=== PATIENT | female | born 1995 | race Two or more races ===

== ENCOUNTER 2020-09-04 12:12 | Emergency (ER) | payer OTHER ==
--- NOTE | 2020-09-04 13:17 | ER Document Report ---
ED Medical Screen (RME) - General Chief Complaint: Urinary Problem Stated Complaint: URINARY PROBLEMS Time Seen by Provider: 09/04/20 13:12 Mode of Arrival: Ambulatory Information source: Patient Notes: Presents complaining of right lower pelvic pain that started yesterday. Patient states she has had vaginal bleeding for the past 11 days. Patient reports decreased appetite although denies any nausea vomiting or diarrhea. Patient denies any fever. Patient states she was seen at her doctor's office and diagnosed with a UTI although told to come here for an ultrasound. I have greeted and performed a rapid initial assessment of this patient. A comprehensive ED assessment and evaluation of the patient, analysis of test results and completion of the medical decision making process will be conducted by additional ED providers. Physical Exam - Vital signs Vitals: Temp Pulse Resp BP Pulse Ox 98.1 F 76 21 H 147/92 H 100 09/04/20 12:18 09/04/20 12:18 09/04/20 12:18 09/04/20 12:18 09/04/20 12:18 - Abdominal Tenderness: Tender - right Lower pelvic tenderness Course - Vital Signs Vital signs: Temp Pulse Resp BP Pulse Ox 98.1 F 76 21 H 147/92 H 100 09/04/20 12:18 09/04/20 12:18 09/04/20 12:18 09/04/20 12:18 09/04/20 12:18
[2020-09-04 13:53] LABS: APPEARANCE,URINE CLEAR; BILIRUBIN,URINE NEGATIVE (NEGATIVE); COLOR,URINE YELLOW; GLUCOSE, URINE NEGATIVE (NEGATIVE); KETONES,URINE NEGATIVE (NEGATIVE); PROTEIN,URINE NEGATIVE (NEGATIVE); URINE SPECIFIC GRAVITY 1.013; UROBILINOGEN,URINE NEGATIVE mg/dL (<2.0)
--- NOTE | 2020-09-04 15:05 | RADIOLOGY REPORT (SQ) ---
EXAM DESCRIPTION: U/S OB TRANSVAG W/DOPPLER IMAGES COMPLETED DATE/TIME: 09/04/2020 2:41 pm REASON FOR STUDY: RLQ pain COMPARISON: None. TECHNIQUE: Transvaginal static and realtime grayscale images acquired of the pelvis. Additional bonnie cted spectral and color Doppler images recorded. All images stored on PACs. CLINICAL AGE: Uncertain. BHCG: Pending. LIMITATIONS: None. FINDINGS: UTERUS: No visualized intrauterine . RIGHT ADNEXA: Normal ovary with normal vascular flow. No adnexal free fluid. Possible ill-defined mass adjacent to the ovary, measuring just over 1 cm. Peripheral flow. LEFT ADNEXA: Normal ovary with normal vascular flow. No adnexal free fluid. No adnexal masses. FREE FLUID: None. OTHER: No other significant finding. IMPRESSION: NO VISUALIZED INTRAUTERINE . BHCG LEVEL NOT AVAILABLE FOR CORRELATION WITH US FINDINGS. POSSIBLE SMALL ILL-DEFINED MASS ADJACENT TO RIGHT OVARY. ECTOPIC CANNOT BE EXCLUDED. CORRELATE WITH BHCG LEVEL. TECHNICAL DOCUMENTATION: JOB ID: [id number] 2010 [employer]- All Rights Reserved Reading location - IP/workstation name: [email or web address]
[2020-09-04 15:40] LABS: CHLAM PCR NOT DETECTED (NOT DETECT)
[2020-09-04 16:01] LABS: ABSOLUTE EOSINOPHILS # (AUTO) 0.2 10^3/uL (0.0-0.6); ABSOLUTE LYMPHOCYTES (AUTO) 1.9 10^3/uL (0.5-4.7); ABSOLUTE MONOCYTES (AUTO) 0.3 10^3/uL (0.1-1.4); ABSOLUTE NEUT (AUTO) 2.7 10^3/uL (1.7-8.2); BASOPHILS % (AUTO) 0.8 % (0-2); EOSINOPHILS % (AUTO) 4.3 % (0-6); HEMATOCRIT 37.1 % (36.0-47.0); HEMOGLOBIN 12.5 g/dL (12.0-15.5); LYMPHOCYTES % (AUTO) 36.6 % (13-45); MEAN CORPUSCULAR HEMOGLOBIN 27.5 pg (27.0-33.4); MEAN CORPUSCULAR HGB CONC 33.6 g/dL (32.0-36.0); MEAN CORPUSCULAR VOLUME 82 fl (80-97); MONOCYTES % (AUTO) 6.5 % (3-13); PLATELET COUNT 250 10^3/uL (150-450); RED BLOOD COUNT 4.55 10^6/uL (3.72-5.28); RED CELL DISTRIBUTION WIDTH 14.1 % (11.5-14.0); SEGMENTED NEUTROPHILS % (AUTO) 51.8 % (42-78); TOTAL CELLS COUNTED % (AUTO) 100 %; WHITE BLOOD COUNT 5.2 10^3/uL (4.0-10.5)
[2020-09-04 16:25] LABS: ANION GAP 7 (5-19); BLOOD UREA NITROGEN 14 mg/dL (7-20); CALCIUM 10.1 mg/dL (8.4-10.2); CARBON DIOXIDE 28 mmol/L (22-30); CHLORIDE 102 mmol/L (98-107); GLUCOSE 77 mg/dL (75-110); POTASSIUM 4.6 mmol/L (3.6-5.0)
[2020-09-04] MEDS ORDERED: NORMAL SALINE 1000 ML 1,000 ML IV ONE (16:59)
--- NOTE | 2020-09-04 17:42 | ER Document Report ---
ED General - General Chief Complaint: Vaginal Bleeding Stated Complaint: URINARY PROBLEMS Time Seen by Provider: 09/04/20 13:12 Mode of Arrival: Ambulatory - HPI Notes: Patient is a 25-year-old female presents to the emergency department for evaluation of 11 days of vaginal bleeding as well as right pelvic pain. Her last menstrual period was in July, she states it was normal. She started having vaginal bleeding, which she states is similar to menstruation, but she is continued to have significant pain that is worse than normal menstruation. Her pain was generalized but now it is localized to the right side. It is sharp and stabbing. Nothing really seems to make it better or worse. She said no fever chills. No vaginal discharge. She is sexually active. She has been twice prior to this, she did have an elective AB and a miscarriage in the past. - Related Data Allergies/Adverse Reactions: bee venom protein (honey bee) Allergy (Verified 09/04/20 16:20) nickel Allergy (Verified 09/04/20 16:20) Past Medical History - General Information source: Patient - Social History Smoking Status: Never Smoker Family History: Other - GERD GI Medical History: Reports: Hx Gastroesophageal Reflux Disease Psychiatric Medical History: Reports: Hx Bipolar Disorder Past Surgical History: Reports: Hx Oral Surgery - wisdom Review of Systems - Review of Systems Constitutional: No symptoms reported EENT: No symptoms reported Cardiovascular: No symptoms reported Respiratory: No symptoms reported Gastrointestinal: No symptoms reported Genitourinary: No symptoms reported Female Genitourinary: See HPI Musculoskeletal: No symptoms reported Skin: No symptoms reported Neurological/Psychological: No symptoms reported Physical Exam - Vital signs Vitals: Temp Pulse Resp BP Pulse Ox 98.1 F 76 21 H 147/92 H 100 09/04/20 12:18 09/04/20 12:18 09/04/20 12:18 09/04/20 12:18 09/04/20 12:18 - Notes Notes: Vital signs reviewed, please refer to chart. Head is normocephalic, atraumatic. Pupils equal round, reactive to light. Neck is supple without meningismus. Heart is regular rate and rhythm. Lungs are clear to auscultation bilaterally. Abdomen is soft, minimally tender in the right pelvis without rebound or gu arding, normoactive bowel sounds throughout. Extremities without cyanosis, clubbing. Posterior calves are nontender. Peripheral pulses are equal. Skin is warm and dry. Patient is awake, alert, neurological exam is nonfocal. Course - Re-evaluation Re-evalutation: 09/04/20 17:41 Patient presents to the emergency department for evaluation. She laboratory vesication is is initially ordered through triage. She was found to be p regnant. OB ultrasound was performed, and there is some concern for an ectopic . Quantitative beta and Rh status ordered. IV fluids ordered. Patient is stable, we will continue to monitor. 09/04/20 18:08 I discussed this case with Dr. Radha Weinberg. She states that it sounds like it may be a likely ectopic, but also could be a possible corpus luteum cyst. It does turn on fact that if this is a viable it is desired. We will repeat a quant on Monday, with results to Dr. Mckeon, who will be the CP BLEACHER OPERATOR on- call. The patient is to call Monday morning for an CP BLEACHER OPERATOR appointment to be assessed this week with a repeat ultrasound. Still awaiting Rh screening. If negative she will receive RhoGam. All of this information was communicated to the patient. Repeat abdominal exam reveals again tenderness but no rebound or guarding. 09/04/20 18:21 Patient is Rh+, RhoGam not indicated. - Vital Signs Vital signs: Temp Pulse Resp BP Pulse Ox 98.1 F 76 21 H 147/92 H 100 09/04/20 12:18 09/04/20 12:18 09/04/20 12:18 09/04/20 12:18 09/04/20 12:18 - Laboratory Results Result Diagrams: 09/04/20 15:25 09/04/20 15:25 Laboratory Results Interpreted: 09/04/20 09/04/20 09/04/20 13:33 15:25 15:25 RDW 14.1 H Serum HCG, Qual POSITIVE H Beta HCG, Quant Urine Blood LARGE H 09/04/20 15:25 RDW Serum HCG, Qual Beta HCG, Quant 134.84 H Urine Blood Critical Laboratory Results Reviewed: No Critical Results - Radiology Results Radiology Results Interpreted: 09/04/20 17:42 Transvaginal US 09/04/20 13:15 IMPRESSION: NO VISUALIZED INTRAUTERINE . BHCG LEVEL NOT AVAILABLE FOR CORRELATION WITH US FINDINGS. POSSIBLE SMALL ILL-DEFINED MASS ADJACENT TO RIGHT OVARY. ECTOPIC CANNOT BE EXCLUDED. CORRELATE WITH BHCG LEVEL. Critical Radiology Results Reviewed: No Critical Results Discharge - Discharge Clinical Impression: Abnormal vaginal bleeding, Possible ectopic Clinical Impression: (Ruled Out): Abnormal vaginal bleeding in postmenopausal patient Condition: Stable Disposition: HOME, SELF-CARE Instructions: Bleeding During Early ([facility]), Vaginal Bleeding ([facility]) Additional Instructions: Your findings today are concerning for a possible early ectopic . Further testing must be performed. You need to have a quantitative beta-hCG p erformed on Monday. Your beta today is 134. It is important that this lab be done on Monday, you can check in with outpatient registration. Call Monday morning to women's health to set up an appointment for repeat ultrasound this week. If you develop increasing pain, dizziness, vaginal bleeding that is heavier than 1 pad an hour for 4 hours, or any other new or concerning symptoms, please return immediately to the emergency department for evaluation. Forms: Follow-Up Laboratory Testing
[2020-09-04 18:39] VITALS: BP 127/79
== END 2020-09-04 18:38 | disposition home or self-care (01) ==
LOC: ER 12:12
DX: N93.8 Other specified abnormal uterine and vaginal bleeding (principal); R10.2 Pelvic and perineal pain
CPT/HCPCS: 99285; 96360; 86900; 86901; 36415; 84702; 84703; 85025; 80048; 81001; 87491; 87591; 76817; 93976; J7030

== ENCOUNTER → 2020-09-06 | Outpatient (CLI) | payer OTHER | LOC: LAB 11:44 | PROVIDERS: ATTEND Emergency Medicine | DX: O46.90 Antepartum hemorrhage, unspecified, unspecified trimester (principal) | CPT/HCPCS: 36415; 84702 ==

== ENCOUNTER 2020-09-10 11:25 | Day surgery (SDC) | payer OTHER ==
[~2020-09-10 11:25] MED LIST: ROCURONIUM BROMIDE INJ 50 MG/5 ML VIAL IV ONE
[2020-09-10 12:05] LABS: APPEARANCE,URINE CLEAR; BILIRUBIN,URINE NEGATIVE (NEGATIVE); COLOR,URINE STRAW; GLUCOSE, URINE NEGATIVE (NEGATIVE); KETONES,URINE NEGATIVE (NEGATIVE); LEUKOCYTE ESTERASE,URINE NEGATIVE (NEGATIVE); NITRITE,URINE NEGATIVE (NEGATIVE); PROTEIN,URINE NEGATIVE (NEGATIVE); URINE SPECIFIC GRAVITY 1.006; UROBILINOGEN,URINE NEGATIVE mg/dL (<2.0)
[2020-09-10 12:37] LABS: HEMATOCRIT 37.1 % (36.0-47.0); HEMOGLOBIN 12.3 g/dL (12.0-15.5); MEAN CORPUSCULAR HEMOGLOBIN 26.9 pg (27.0-33.4); MEAN CORPUSCULAR HGB CONC 33.1 g/dL (32.0-36.0); MEAN CORPUSCULAR VOLUME 81 fl (80-97); PLATELET COUNT 265 10^3/uL (150-450); RED BLOOD COUNT 4.56 10^6/uL (3.72-5.28); RED CELL DISTRIBUTION WIDTH 14.7 % (11.5-14.0); WHITE BLOOD COUNT 5.6 10^3/uL (4.0-10.5)
[2020-09-10] MEDS ORDERED: CEFAZOLIN 2 GM/D5W RTU 2 GM/50 ML RTUPB IV ONE (12:49)
[2020-09-10] MEDS ORDERED: DEXAMETHASONE SOD PHOSPHATE INJ 4 MG/1 ML VIAL ONE (13:17)
[2020-09-10] MEDS ORDERED: FENTANYL CITRATE INJ/PF 100 MCG/2 ML AMPUL ONE ×2 (13:17→15:16)
[2020-09-10] MEDS ORDERED: ONDANSETRON HCL INJ/PF 4 MG/2 ML SDV ONE (13:17)
[2020-09-10] MEDS ORDERED: KETOROLAC TROMETHAMINE 60 MG/2 ML SDV ONE (13:17)
[2020-09-10] MEDS ORDERED: PROPOFOL INJ 200 MG/20 ML VIAL IV ONE (13:18)
[2020-09-10] MEDS ORDERED: MIDAZOLAM 2 MG/2 ML INJ ONE (13:25)
[2020-09-10] MEDS ORDERED: MORPHINE SULFATE 10 MG/ML INJ IV PRN (14:12)
[2020-09-10] MEDS ORDERED: PROMETHAZINE HCL INJ 25 MG/1 ML VIAL IV PRN (14:12)
[2020-09-10] MEDS ORDERED: MEPERIDINE HCL/PF INJ 25 MG/1 ML DISP.SYRIN IV PRN (14:12)
[2020-09-10] MEDS ORDERED: FENTANYL CITRATE INJ/PF 100 MCG/2 ML AMPUL IV PRN ×3 (14:12)
[2020-09-10] MEDS ORDERED: DIPHENHYDRAMINE HCL 50 MG/ML VIAL IV PRN (14:12)
[2020-09-10] MEDS ORDERED: ONDANSETRON HCL INJ/PF 4 MG/2 ML SDV IV PRN (14:12)
[2020-09-10] MEDS ORDERED: RINGERS SOLUTION,LACTATED 1,000 ML IV PRN (14:55)
[2020-09-10] MEDS ORDERED: KETOROLAC TROMETHAMINE INJ/PF 30 MG/1 ML SDV IV PRN (14:55)
[2020-09-10] MEDS ORDERED: IBUPROFEN 800 MG TABLET PO PRN (14:55)
[2020-09-10] MEDS ORDERED: OXYCODONE-ACETAMINOPHEN 5-325 MG TABLET PO PRN ×2 (14:55)
--- NOTE | 2020-09-10 15:02 | Operative Report ---
Operative Report DATE OF SURGERY: 09/10/20 PREOPERATIVE DIAGNOSIS: Right-sided ectopic POSTOPERATIVE DIAGNOSIS: Same OPERATION: Laparoscopy with right salpingectomy SURGEON: GRACIE EDMONDS ANESTHESIA: GA TISSUE REMOVED OR ALTERED: Right fallopian tube and ectopic COMPLICATIONS: None ESTIMATED BLOOD LOSS: 50 cc INTRAOPERATIVE FINDINGS: Ectopic in right fallopian tube which filled the entire fallopian tube. There was also blood in the pelvis. PROCEDURE: The patient was taken the OR and placed in supine position. Anesthesia was induced. She is placed in the dorsolithotomy position using Clifford stirrups. Her abdomen perineum were prepared and draped in a sterile fashion and a Martinez catheter was placed. An incision was made the umbilicus natural umbilical defect was identified and dilated with a Radha clamp. This allowed a 5 mm port to be placed bluntly. Laparoscopy confirmed appropriate placement. The abdomen was insufflated with CO2 gas. There was blood in the pelvis. Suprapubic incision was made and a 5 mm port placed under laparoscopic visualization. A left lateral port was also placed under laparoscopic visualization. The ectopic filled the entire fallopian tube and for this reason a salpingostomy did not seem to be a reasonable option. Next using the LigaSure device the fallopian tube was removed. Was placed in Endo Catch bag and removed through the suprapubic incision. The pelvis was then irrigated and fluid suctioned free. Hemostasis was good. The gas was allowed to escape from the abdomen. The ports were removed. The fascia at the umbilicus was closed with a 2-0 Vicryl stitch and skin closed with a 4-0 undyed Vicryl stitch at all 3 sites. The Martinez catheter was removed in the OR. The patient was extubated in the OR and taken to recovery in stable condition.
--- NOTE | 2020-09-10 15:07 | PDOC DISCHARGE SUMMARY ---
Impression - Admit/DC Date/PCP Admission Date/Primary Care Provider: EDWIGE LOWE Discharge Date: 09/10/20 - Discharge Diagnosis (1) Ectopic , tubal Is this a current diagnosis for this admission?: Yes - Assessment Summary: The patient was admitted and underwent surgery for a right sided ectopic . Please see the operative report. She did well postop and was discharged home with pain medications with follow-up in the office in 1 week. - Additional Information Resuscitation Status: Full Code Discharge Diet: As Tolerated Discharge Activity: Balance Activity w/Rest, Pelvic Rest Referrals: MARKUS FERMIN FNP-C [Primary Care Provider] - Prescriptions: Oxycodone HCl/Acetaminophen [Percocet 5-325 mg Tablet] 1 tab PO Q4HP PRN #20 tablet PRN Reason: Ibuprofen [Motrin 800 mg Tablet] 800 mg PO NOW PRN #30 tablet PRN Reason: Home Medications: Ibuprofen [Motrin 800 mg Tablet] 800 mg PO NOW PRN #30 tablet 09/10/20 Oxycodone HCl/Acetaminophen [Percocet 5-325 mg Tablet] 1 tab PO Q4HP PRN #20 tablet 09/10/20 Additional Information: She will followup in one week History of Present Illiness History of Present Illness: NEREYDA DIANA is a 25 year old female Physical Exam - Physical Exam Vital Signs: Temp Pulse Resp BP Pulse Ox 97.8 F 69 17 127/91 H 100 09/10/20 11:45 09/10/20 11:45 09/10/20 11:45 09/10/20 11:45 09/10/20 11:45 Intake & Output 09/09/20 09/10/20 09/11/20 06:59 06:59 06:59 Intake Total 0 Balance 0 Weight 58.51 kg Results Laboratory Results: WBC 5.6 10^3/uL (4.0-10.5) 09/10/20 12:17 RBC 4.56 10^6/uL (3.72-5.28) 09/10/20 12:17 Hgb 12.3 g/dL (12.0-15.5) 09/10/20 12:17 Hct 37.1 % (36.0-47.0) 09/10/20 12:17 MCV 81 fl (80-97) 09/10/20 12:17 MCH 26.9 pg (27.0-33.4) L 09/10/20 12:17 MCHC 33.1 g/dL (32.0-36.0) 09/10/20 12:17 RDW 14.7 % (11.5-14.0) H 09/10/20 12:17 Plt Count 265 10^3/uL (150-450) 09/10/20 12:17 Urine Color STRAW 09/10/20 11:45 Urine Appearance CLEAR 09/10/20 11:45 Urine pH 7.0 (5.0-9.0) 09/10/20 11:45 Ur Specific Cowgill 1.006 09/10/20 11:45 Urine Protein NEGATIVE mg/dL (NEGATIVE) 09/10/20 11:45 Urine Glucose (UA) NEGATIVE mg/dL (NEGATIVE) 09/10/20 11:45 Urine Ketones NEGATIVE mg/dL (NEGATIVE) 09/10/20 11:45 Urine Blood NEGATIVE (NEGATIVE) 09/10/20 11:45 Urine Nitrite NEGATIVE (NEGATIVE) 09/10/20 11:45 Urine Bilirubin NEGATIVE (NEGATIVE) 09/10/20 11:45 Urine Urobilinogen NEGATIVE mg/dL (<2.0) 09/10/20 11:45 Ur Leukocyte Esterase NEGATIVE (NEGATIVE) 09/10/20 11:45 Urine WBC (Auto) 1 /HPF 09/10/20 11:45 Squamous Epi Cells Auto 1 /HPF 09/10/20 11:45 Urine Mucus (Auto) RARE /LPF 09/10/20 11:45 Urine Ascorbic Acid NEGATIVE (NEGATIVE) 09/10/20 11:45 Urine HCG, Qual POSITIVE (NEGATIVE) H 09/10/20 11:45 Influenza A (RT-PCR) NEGATIVE (NEGATIVE) 09/10/20 11:38 Influenza B (RT-PCR) NEGATIVE (NEGATIVE) 09/10/20 11:38 RSV (RT-PCR) NEGATIVE (NEGATIVE) 09/10/20 11:38 SARS-CoV-2 Rap RNA(RT-PCR) NEGATIVE (NEGATIVE) 09/10/20 11:38 Stroke Is this a Stroke Patient?: No Acute Heart Failure Is this a Heart Failure Patient?: No
[2020-09-10] MEDS ORDERED: MEPERIDINE HCL/PF INJ 25 MG/1 ML DISP.SYRIN ONE (15:16)
[2020-09-10] MEDS ORDERED: OXYCODONE-ACETAMINOPHEN 5-325 MG TABLET ONE (16:09)
[2020-09-10 17:39] VITALS: BP 122/81
== END 2020-09-10 17:10 | disposition home or self-care (01) ==
LOC: OROUT 11:25
PROVIDERS: ATTEND Obstetrics & Gynecology
DX: O00.101 Right tubal pregnancy without intrauterine pregnancy (principal); Z01.812 Encounter for preprocedural laboratory examination; Z20.822 Contact with and (suspected) exposure to COVID-19; Z87.59 Personal history of other complications of pregnancy, childbirth and the puerperium
CPT/HCPCS: 59151; 36415; 85027; 0241U ×4; 81025; 81001; 88305 ×2; 99140; 00840; J2250; J3490; J1100; J1885; J3010; J2175; J2405; J2704; J0690; C9803; 840

== ENCOUNTER 2020-09-11 16:21 | Emergency (ER) | payer OTHER ==
[2020-09-11 16:45] VITALS: BP 113/66
--- NOTE | 2020-09-11 16:48 | ER Document Report ---
HPI - HPI Time Seen by Provider: 09/11/20 16:44 Notes: 25-year-old female patient presents the emergency department with request for wound recheck. Patient had surgery done here at this hospital yesterday for an ectopic . She states they removed her left fallopian tube. One of her laparoscopic sites has opened up. She denies any increased pain, fever or chills. - ROS Notes: See HPI Systems Reviewed and Negative: Yes All other systems reviewed and negative Past Medical History - General Information source: Patient - Social History Smoking Status: Never Smoker Frequency of alcohol use: None Drug Abuse: None Family History: Other - GERD - Past Medical History Cardiac Medical History: Denies: Hx Coronary Artery Disease, Hx Heart Attack, Hx Hypertension Pulmonary Medical History: Denies: Hx Asthma, Hx Bronchitis, Hx COPD, Hx Pneumonia Neurological Medical History: Denies: Hx Cerebrovascular Accident, Hx Seizures GI Medical History: Reports: Hx Gastroesophageal Reflux Disease Musculoskeletal Medical History: Denies Hx Arthritis Psychiatric Medical History: Reports: Hx Bipolar Disorder Past Surgical History: Reports: Hx Oral Surgery - wisdom - Immunizations Hx Diphtheria, Pertussis, Tetanus Vaccination: No - unknown Vertical Provider Document - CONSTITUTIONAL Notes: PHYSICAL EXAMINATION: GENERAL: Well-appearing, well-nourished and in no acute distress. HEAD: Atraumatic, normocephalic. EYES: Pupils equal round extraocular movements intact, conjunctiva are normal. ENT: Nares patent NECK: Normal range of motion LUNGS: No respiratory distress Musculoskeletal: Normal range of motion NEUROLOGICAL: Normal speech, normal gait. PSYCH: Normal mood, normal affect. SKIN: Lap sites to left lower quadrant measuring approximately 1 cm is open. No erythema or drainage noted. Course - Re-evaluation Re-evalutation: 09/11/20 16:[address] Grant. Will [address] Steri-Strips to the area and patient will continue with routine follow-up. Patient agreeable to this plan. - Vital Signs Vital signs: Temp Pulse Resp BP Pulse Ox 98.8 F 81 18 113/66 100 09/11/20 16:43 09/11/20 16:43 09/11/20 16:43 09/11/20 16:43 09/11/20 16:43 - Laboratory Results Critical Laboratory Results Reviewed: No Critical Results - Radiology Results Critical Radiology Results Reviewed: No Critical Results Discharge - Discharge Clinical Impression: Encounter for postoperative wound check Condition: Stable Disposition: HOME, SELF-CARE Additional Instructions: Please keep the Steri-Strip in place until it falls off on its own. Be mindful of signs of infections to include increased redness, pain, swelling or development of fever. Please follow-up with Dr. Mckeon's office next week as per your previous discharge instructions. Referrals: MARKUS FERMIN, ALLEGRAC [Primary Care Provider] - Follow up as needed
== END 2020-09-11 17:27 | disposition home or self-care (01) ==
LOC: ER 16:21
DX: T81.31XA Disruption of external operation (surgical) wound, not elsewhere classified, initial encounter (principal); Y83.6 Removal of other organ (partial) (total) as the cause of abnormal reaction of the patient, or of later complication, without mention of misadventure at the time of the procedure; Z90.79 Acquired absence of other genital organ(s)
CPT/HCPCS: 99281